=== PATIENT | female | born 1975 | race Two or more races ===

== ENCOUNTER → 2025-05-01 | Outpatient (CLI) | payer OTHER, SELFPAY ==
--- NOTE | 2025-05-01 14:15 | XR_ITS ---
Examination: Screening digital mammography, bilateral Computer aided detection 3-D breast Tomosynthesis, bilateral Date and time of exam: May 01, 2025 1419 hours Compared to mammograms dating to February 25, 2017 Indication: Screening Technique: Nonmagnified MLO, CC views of the breasts to been obtained, reconstructed from 3-D Tomosynthesis images. R2 computer aided detection program utilized for evaluation of suspicious masses and/or abnormal calcifications. 3-D Tomosynthesis images obtained. Findings: The breasts are heterogeneously dense, which may obscure small masses Stable nodule upper right breast MLO view and inner left breast CC view compared to 08/21/2023 Impression: BI-RADS Category 0: Incomplete: Additional imaging evaluation Recommend repeat baseline bilateral breast sonography follow-up
--- NOTE | 2025-05-01 15:00 | XR_ITS ---
Examination: CT chest, without intravenous contrast. Sagittal and coronal 2-D reconstructions. Exam date and time: May 01, 2025 1649 hours INDICATIONS: Smoking history 12 years CTDI:vol (mGy) 6.96 DLP: (mGycm) 239 Technique: Multiple 3.0 mm axial sections of the chest to been obtained. Bone and lung density settings are obtained. Sagittal and coronal 2-D reconstructions have been obtained. Low dose protocols were performed. One or more of the following dose reduction techniques were used; automated exposure control, adjustment of the mA and/or KV according to patient size, use of iterative reconstruction technique. Findings: No thoracic aortic aneurysmal dilatation Pulmonary artery segments are not enlarged [id number] calcification left anterior descending coronary artery No paratracheal tracheobronchial or bronchopulmonary adenopathy No pneumonia, pulmonary edema, pleural disease or pulmonary nodule is No focal liver or splenic lesion Tiny gallstones No pancreatic or adrenal mass No renal or ureteral calculi IMPRESSION: No mediastinal lymphadenopathy. No pneumonia, pulmonary edema, pleural disease or pulmonary nodules Cholelithiasis
[2025-05-01 16:16] LABS: HCG Qualitative,Urine Negative
== END | disposition home or self-care (01) ==
PROVIDERS: Referring Provider Family Medicine; Visit Provider Family Medicine
DX: Z12.31 Encounter for screening mammogram for malignant neoplasm of breast (principal); R92.8 Other abnormal and inconclusive findings on diagnostic imaging of breast; K80.20 Calculus of gallbladder without cholecystitis without obstruction; Z32.00 Encounter for pregnancy test, result unknown
CPT/HCPCS: 71271; 77063; 77067; 81025

== ENCOUNTER → 2025-08-07 | Outpatient (CLI) | payer OTHER, SELFPAY ==
--- NOTE | 2025-08-07 13:30 | XR_ITS ---
Examination: Breast ultrasound complete, bilateral Date and time of exam: August 07, 2025 1337 hours INDICATIONS: Mammogram May 01, 2025 stable nodule upper right breast and inner left breast Technique: Real-time grayscale ultrasonographic imaging bilateral breasts, including all 4 quadrants as well as nipple retroareolar and axillary regions. Findings: Sonographic images right breast 9:00 cyst 6 x 6 mm No solid nodules Sonographic images left breast 12:00 cyst 5 x 3 mm No solid nodules IMPRESSION: BI-RADS Category 2: Benign findings
== END | disposition home or self-care (01) ==
LOC: CDIM 13:17
PROVIDERS: PCP Family Medicine; Referring Provider Family Medicine; Visit Provider Family Medicine
DX: N60.01 Solitary cyst of right breast (principal); N60.02 Solitary cyst of left breast
CPT/HCPCS: 76641